=== PATIENT | male | born 1990 | race Caucasian/White ===

== ENCOUNTER 2024-02-28 20:39 | Inpatient (IN) | payer OTHER ==
[~2024-02-28] VITALS: Ht 177.8 cm; Wt 133.5 kg
[2024-02-28] MEDS ORDERED: NS 1,000 ML IV SCH (21:35)
[2024-02-28] MEDS ORDERED: HYDROmorphone HCl/Pf 1MG SYR IV ONE ×2 (21:35→22:15)
[2024-02-28 21:52] LABS: BASOPHILS ABSOLUTE AUTO 0.06 K/mm3 (0.00-0.23); BASOPHILS PERCENT AUTO 0 % (0-2); EOSINOPHILS ABSOLUTE AUTO 0.18 K/mm3 (0.00-0.68); EOSINOPHILS PERCENT AUTO 1 % (0-6); Hematocrit 45.8 % (37.0-53.0); Hemoglobin 16.1 g/dL (13.5-17.5); IMMATURE GRAN ABSOLUTE AUTO 0.07 K/mm3 (0.00-0.10); IMMATURE GRAN PERCENT AUTO 1 % (0-1); LYMPHOCYTES ABSOLUTE AUTO 2.35 K/mm3 (0.84-5.20); LYMPHOCYTES PERCENT AUTO 17 % (21-46); MONOCYTES ABSOLUTE AUTO 1.74 K/mm3 (0.16-1.47); MONOCYTES PERCENT AUTO 13 % (4-13); Mean Corpuscular HGB 30.2 pg (26.0-34.0); Mean Corpuscular HGB Conc 35.2 g/dL (31.5-36.5); Mean Corpuscular Volume 86 fL (80-100); Mean Platelet Volume 9.4 fL (9.1-12.4); NEUTROPHILS ABSOLUTE AUTO 9.37 K/mm3 (1.96-9.15); NEUTROPHILS PERCENT AUTO 68 % (41-73); Platelet Count 338 K/mm3 (150-400); RDW Coefficient Variation 12.7 % (11.7-14.2); RDW Standard Deviation 39.7 fL (35.1-46.3); Red Blood Cell Count 5.33 M/mm3 (4.30-5.90); White Blood Cell Count 13.77 K/mm3 (4.00-11.30)
[2024-02-28 22:21] LABS: Albumin, Blood 4.3 g/dL (3.4-5.0); Albumin/Globulin Ratio 1.3 (0.8-1.8); Bilirubin, Total 0.7 mg/dL (0.1-1.0); Bun/Creatinine Ratio 14.8 (12.0-20.0); Calcium, Blood 9.9 mg/dL (8.5-10.1); Creatinine, Blood 1.08 mg/dL (0.60-1.20); Globulin, Blood 3.4 g/dL (2.2-4.0); Potassium, Blood 3.8 mmol/L (3.5-5.5); Total Protein, Blood 7.7 g/dL (6.4-8.2)
[2024-02-28] MEDS ORDERED: Colchicine 0.6 MG TAB PO ONE (22:55)
[2024-02-28] MEDS ORDERED: Ketorolac Tromethamine 15mg Vial IV ONE (22:55)
[2024-02-29] VITALS (13 sets, daily range): BP systolic 111–137; BP diastolic 61–81
[2024-02-29 00:29] LABS: Body Fluid Crystals POS (NEGATIVE)
[2024-02-29 00:41] LABS: Appearance, Synovial Fluid Hazy (Clear); BODY FLUID RBC 0.004 M/mm3 (0-0); Color, Synovial Fluid Yellow (None-P Yel); RBC Count, Synovial Fluid 4000 /mm3 (0-0); WBC Count, Synovial Fluid 36360 /mm3 (0-180)
[2024-02-29 00:43] LABS: Lymphs, Synovial Fluid 3 % (0-15); Monocytes/Macrophages, Synovia 4 % (0-65); Neutrophils, Synovial Fluid 93 % (0-24)
[2024-02-29] MEDS ORDERED: CefTRIAXone Sodium 2,000 MG in NS 100 ML IV ONE (01:30)
[2024-02-29] MEDS ORDERED: Acetaminophen 325 MG TABLET PO PRN (02:45)
[2024-02-29] MEDS ORDERED: FLU VACC TS2024-25(6MOS UP)/PF 45 MCG/0.5 ML SYRINGE IM ONE (02:50)
[2024-02-29] MEDS ORDERED: OxyCODONE HCL 5 MG TAB PO PRN (02:50)
[2024-02-29] MEDS ORDERED: HYDROmorphone HCl/Pf 1MG SYR IV PRN ×2 (02:50→07:20)
[2024-02-29] MEDS ORDERED: Ondansetron HCl 2 MG / ML 2ML Vial IV PRN (02:50)
[2024-02-29] MEDS ORDERED: Colchicine 0.6 MG TAB PO ONE (03:00)
[2024-02-29] MEDS ORDERED: Lactated Ringer's 1,000 ML IV SCH ×2 (04:00→11:55)
[2024-02-29] MEDS ORDERED: Vancomycin HCL 2,500 MG in NS 500 ML IV ONE (04:05)
[2024-02-29] MEDS ORDERED: Ketorolac Tromethamine 30mg Vial IV ONE (07:55)
[2024-02-29] MEDS ORDERED: Ketorolac Tromethamine 30mg Vial IV PRN (08:50)
[2024-02-29] MEDS ORDERED: Lactobacil 2-S.Thermo-Bifido 1 1 Cap PO SCH (09:00)
[2024-02-29] MEDS ORDERED: Colchicine 0.6 MG TAB PO SCH (09:00)
[2024-02-29] MEDS ORDERED: Docusate Sodium 100 MG Cap PO SCH (09:00)
[2024-02-29 10:04] LABS: WBC Count, Synovial Fluid 26355 /mm3 (0-180)
[2024-02-29 10:09] LABS: Color, Synovial Fluid Pale Yellow (None-P Yel)
[2024-02-29 10:10] LABS: Appearance, Synovial Fluid Cloudy (Clear); Crystals, Synovial Fluid Not Seen (Not Seen)
[2024-02-29] MEDS ORDERED: Norco 5-325 Ta1 EACH PO (10:36)
[2024-02-29] MEDS ORDERED: NAPR500 PO (10:37)
[2024-02-29 10:42] LABS: Lymphs, Synovial Fluid 2 % (0-15); Monocytes/Macrophages, Synovia 8 % (0-65); Neutrophils, Synovial Fluid 90 % (0-24)
[2024-02-29 11:09] LABS: RBC Count, Synovial Fluid 148 /mm3 (0-0)
[2024-02-29] MEDS ORDERED: propofoL 20 ML IV ONE (11:13)
[2024-02-29] MEDS ORDERED: FentaNYL Citrate 50 MCG/ML 5 ML Injection ONE (11:14)
[2024-02-29] MEDS ORDERED: Sugammadex Sodium 200 MG/2ML SDV (100 MG/ML) ONE ×2 (11:19→12:06)
[2024-02-29] MEDS ORDERED: Rocuronium Bromide 10 MG/ML 5ML Injection IV ONE (12:08)
[2024-02-29] MEDS ORDERED: Ondansetron HCl 2 MG / ML 2ML Vial ONE (12:10)
[2024-02-29] MEDS ORDERED: Ketorolac Tromethamine 30mg Vial ONE (12:10)
--- NOTE | 2024-02-29 12:28 | NUR ---
PT HAS 20G IV IN L AC THAT FLOWS WELL TO GRAVITY, SHOWS NO SIGNS OF INFILTRATION.
[2024-02-29] MEDS ORDERED: EpiNEPhrine 1 MG/1 ML 1ML Vial ONE (12:46)
[2024-02-29] MEDS ORDERED: Vancomycin HCL 1,250 MG in NS 250 ML IV SCH (13:00)
[2024-02-29] MEDS ORDERED: Lidocaine 1%-Epineph 1:100000 20 ML MDV INJ ONE (13:27)
[2024-02-29 13:54] LABS: Body Fluid Crystals NEG (NEGATIVE)
[2024-02-29 14:21] LABS: Body Fluid Crystals POS (NEGATIVE)
[2024-02-29 14:31] LABS: Glucose, Body Fluid 26 mg/dL
--- NOTE | 2024-02-29 16:53 | NUR ---
SHIFT SUMMARY PT AOX4, 1 ASSIST. URINAL AT BS, URINE SAMPLE STILL TO BE COLLECTED. PAIN MANAGED PER THE EMAR. POST OP VITAL SIGNS STILL IN PROGRESS. PT RETURNED FROM I AND D TO L KNEE AT 1530. RESPIRATORY STILL TO SET UP CONTINUOUS PULSE OX. PT TO WEAR O2 AT NIGHT DUE TO POST-OP SLEEP APNEA PER THE POST-OP NURSE. FAMILY AT THE BS. UPDATED ON PLAN OF CARE. PT RESPOSITIONS SELF IN BED. CALL LIGHT WITHIN REACH, BED LOCKED AND IN THE LOWEST POSITION. WILL REPORT TO ONCOMING NURSE. DRESSING CDI TO L KNEE POST I AND D.
[2024-03-01 03:48] VITALS: BP 103/50
[2024-03-01] MEDS ORDERED: NS 250 ML IV PRN (04:45)
[2024-03-01 05:41] LABS: Hematocrit 39.1 % (37.0-53.0); Hemoglobin 13.6 g/dL (13.5-17.5); Mean Corpuscular HGB 30.4 pg (26.0-34.0); Mean Corpuscular HGB Conc 34.8 g/dL (31.5-36.5); Mean Corpuscular Volume 88 fL (80-100); Mean Platelet Volume 9.7 fL (9.1-12.4); Platelet Count 261 K/mm3 (150-400); RDW Coefficient Variation 12.7 % (11.7-14.2); RDW Standard Deviation 40.3 fL (35.1-46.3); Red Blood Cell Count 4.47 M/mm3 (4.30-5.90); White Blood Cell Count 10.13 K/mm3 (4.00-11.30)
[2024-03-01] MEDS ORDERED: CefTRIAXone Sodium 2,000 MG in NS 100 ML IV SCH (06:00)
[2024-03-01 06:22] LABS: Anion Gap 11 mmol/L (3-11); Blood Urea Nitrogen 10 mg/dL (8-24); Bun/Creatinine Ratio 10.8 (12.0-20.0); CO2, Blood 26 mmol/L (21-32); Calcium, Blood 8.3 mg/dL (8.5-10.1); Chloride, Blood 107 mmol/L (98-108); Creatinine, Blood 0.93 mg/dL (0.60-1.20); Glomerular Filtration Rate 111 (60-); Glucose, Blood 109 mg/dL (70-99); Potassium, Blood 3.8 mmol/L (3.5-5.5); Sodium, Blood 140 mmol/L (136-145); Vancomycin, Trough 7.4 ug/mL (5.0-10.0)
[2024-03-01] MEDS ORDERED: Vancomycin HCL 1,750 MG in NS 500 ML IV SCH (06:33)
[2024-03-01 07:52] VITALS: BP 125/67
--- NOTE | 2024-03-01 07:56 | NUR ---
SHIFT SUMMARY NOC PT A/O X 4. PLEASANT AND COOPERATIVE WITH CARE. BP SOFT AT TIMES. PT POST OP DAY ONE AFTER L KNEE I&D YESTERDAY FOR SEPTIC ATHRITIS/GOUT. DRESSING IN PLACE ON LLE C/D/I. PT PAIN WAS BEING MANAGED PER EMAR WITH PO PAIN RX THROUGH MOST OF SHIFT, BUT EARLY IN AM PT AMBULATED TO BATHROOM WITH FWW AND EXPERIENCED SEVERE L KNEE PAIN AND ULTIMATELY GIVEN IV DILAUDID 2MG ALONG WITH TORADOL. PT ON BIOX DUE TO CONCERNS THAT THEY HAVE UNDIAGNOSED BLADE AND DESATS INTO MID 80'S WHEN ASLEEP, THAT REQUIRES 2-3L/NC TO MAINTAIN SPO2 >92%. PT HOPING TO DISCHARGE HOME TODAY. PT CURRENTLY RESTING WITH BED IN LOWEST POSITION, AND CALL LIGHT WITHIN REACH.
[2024-03-01 15:25] VITALS: BP 112/59
--- NOTE | 2024-03-01 17:07 | NUR ---
SHIFT SUMMARY PT A&OX4, COOPERATIVE, ABLE TO MAKE NEEDS KNOWN. WOUND CARE/DRESSING CHANGE WAS PERFORMED BY [facility]. PT HAS NOT USED CALL LIGHT MUCH EXCEPT FOR PAIN MEDICATION WHICH IS PER EMAR. PT IS 1 PERSON ASSIST TO BATHROOM USING WALKER. NO OTHER ACUTE EVENTS OCCUR DURING SHIFT. BED IN LOWEST POSITION, CALL LIGHT WITHIN REACH.
[2024-03-01] MEDS ORDERED: Polyethylene Glycol 3350 17 gm PO PRN (18:20)
[2024-03-01 20:40] VITALS: BP 137/83
[2024-03-02 02:08] VITALS: BP 114/65
--- NOTE | 2024-03-02 04:05 | NUR ---
SHIFT SUMMARY PATIENT IS ALERT AND ORIENTED. PATIENT HAS HAD NO ACUTE EVENTS THIS SHIFT. VITAL SIGNS REVIEWED. PATIENT HAS REPORTED PAIN THIS SHIFT. MEDICATED PER EMAR. PATIENT HAS NOT COMPLAINED OF SOB, NAUSEA, OR VOMITTING THIS SHIFT. PATIENT IS A 1X ASSIST TO BATHROOM. BED IN LOCKED AND LOWEST POSITION. CALL LIGHT IN PLACE. WILL MONITOR UNTIL SHIFT CHANGE.
--- NOTE | 2024-03-02 06:45 | NUR ---
NURSE NOTE AWAITING LAB RESULTS FOR [facility]. UPDATED PHARMACY AND LAB. WILL UPDATE ONCOMING RN.
[2024-03-02 06:57] LABS: Vancomycin, Trough 4.9 ug/mL (5.0-10.0)
[2024-03-02] MEDS ORDERED: Vancomycin HCL 1,500 MG in NS 250 ML IV SCH (07:23)
[2024-03-02 07:47] VITALS: BP 126/81
[2024-03-02] MEDS ORDERED: COLCHICINE0.6 MG PO (11:30)
[2024-03-02] MEDS ORDERED: DOCU100 PO (11:30)
[2024-03-02] MEDS ORDERED: POLYETHYLENE G500 G1 PO (11:30)
[2024-03-02] MEDS ORDERED: HYDROCODONE-AC1 EA10 PO (11:32)
== END 2024-03-02 11:50 | disposition home or self-care (01) | DRG 554 ==
LOC: ER 20:39 → ERHOLD 20:40 → ER 20:40 → ERHOLD 20:40 → MEDS 20:40 → ERHOLD 02-29 10:14 → MEDS 02-29 10:14 → ERHOLD 02-29 17:24 → MEDS 02-29 17:24
PROVIDERS: Internal Medicine; Orthopaedic Surgery Sports Medicine; Student in an Organized Health Care Education/Training Program; ADMIT Student in an Organized Health Care Education/Training Program
PROC: 0S9D3ZX Drainage of Left Knee Joint, Percutaneous Approach, Diagnostic (ICD-10-PCS; principal; 2024-02-28)
DX: M11.862 Other specified crystal arthropathies, left knee (principal); Z28.21 Immunization not carried out because of patient refusal; M54.9 Dorsalgia, unspecified
CPT/HCPCS: 20610; 36415; 80048; 80053; 80202; 82945; 82947; 83605; 84550; 85025; 85027; 85651; 86140; 87040; 87070; 87075; 87205; 89051; 89060; 94762; 96374-59; 96375-59; 96376; 96376-59; 99284-25; A9270; G0378; J0171; J0696; J1171; J1885; J2405; J2704; J3010; J3370; J7030; J7040; J7050; J7120